=== PATIENT | female | born 1980 | race Hispanic/Latino ===

== ENCOUNTER 2017-10-10 11:29 | Emergency (ER) | payer BC ==
[2017-10-10 12:16] LABS: Absolute Lymphocytes (CBC) 1.9 K/uL (0.7-4.9); Absolute Monocytes 0.5 K/uL (0.1-1.3); Absolute Neutrophil 6.5 K/uL (1.8-8.0); Basophils % 0.5 % (0-1.3); Eosinophils % 1.1 % (0-4.4); Hematocrit 39.3 % (36.0-45.0); Lymphocytes % 21.1 % (15.3-44.8); MCH 27.9 pg (27.0-35.0); MCV 86.2 fL (80-100); Monocytes % 5.6 % (3.3-12.3); RBC Red Blood Cell Count 4.57 M/uL (3.86-4.86)
[2017-10-10 12:17] LABS: Urine Blood 2+ (NEG); Urine Glucose NEGATIVE (NEG); Urine Protein NEGATIVE (NEG); Urine Specific Gravity 1.025 (1.005-1.030); Urine pH 7.5 (5.0-7.0)
[2017-10-10 12:24] LABS: Bicarbonate 26 mEq/L (21-31); Glucose Level 93 mg/dL (65-120); Potassium 3.6 mEq/L (3.6-5.0); Sodium Level 140 mEq/L (135-145)
[2017-10-10 12:25] LABS: BUN Blood Urea Nitrogen 10 mg/dL (6-20)
[2017-10-10 12:38] LABS: HCG, Quantitative 172.9 mIU/mL (<5)
--- NOTE | 2017-10-10 13:34 | RAD REPORT ---
EXAM DESCRIPTION: US - Transvaginal OB - 10/10/2017 1:13 pm CLINICAL HISTORY: Vaginal bleeding. COMPARISON: None. FINDINGS: The uterus is normal in size, shape and echotexture. The uterus measures 8.8 x 4.7 x 4.0 c m. The endometrial stripe measures 12 mm. No gestational sac is suspected in the endometrium. The right ovary measures 3.5 x 2.6 x 1.5 cm. Normal Doppler blood flow seen to the right ovary. The l eft ovary is not well identified. No left-sided adnexal mass. No significant pelvic ascites. IMPRESSION: Mildly thickened and heterogenous endometrial stripe without retained products seen.
--- NOTE | 2017-10-10 14:01 | ER ---
Nurse's Notes [facility] Name: Berna Funes Age: 37 yrs Sex: Female : 1980 Arrival Date: 10/10/2017 Time: 11:32 Bed 14 Private MD: Diagnosis: Complete or unspecified spontaneous without complication Presentation: 10/10 11:36 Presenting complaint: Patient states: spotting for one week, bleeding worse today, had la1 tubal reversal June 17. Pt of Dr Ruiz who has been doing serial HCG. Transition of care: patient was not received from another setting of care. Onset of symptoms was October 10, 2017. Care prior to arrival: None. 11:36 Method Of Arrival: Ambulatory la1 11:36 Acuity: PAULA 3 la1 Triage Assessment: 11:51 General: Appears in no apparent distress. uncomfortable, Behavior is calm, cooperative, hj appropriate for age. Pain: Complains of pain in left lower quadrant and right lower quadrant. EENT: No signs and/or symptoms were reported regarding the EENT system. Neuro: Level of Consciousness is awake, alert, obeys commands, Oriented to person, place, time, situation, Appropriate for age. Cardiovascular: Capillary refill < 3 seconds Patient's skin is warm and dry. Respiratory: Airway is patent Respiratory effort is even, unlabored, Respiratory pattern is regular, symmetrical. GI: No signs and/or symptoms were reported involving the gastrointestinal system. : Reports vaginal bleeding that is. Derm: No signs and/or symptoms reported regarding the dermatologic system. Musculoskeletal: No signs and/or symptoms reported regarding the musculoskeletal system. 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 - Social history:: Smoking status: Patient/guardian denies using tobacco. Screenin:50 Abuse screen: Denies threats or abuse. Denies injuries from another. Nutritional hj screening: No deficits noted. Tuberculosis screening: No symptoms or risk factors identified. Fall Risk None identified. Assessment: 11:54 Reassessment: see triage for assessment;. hj 11:55 Obstetrical Assessment: General assessment: awake and alert, skin warm and dry, Rupture hj of membranes noted. Contractions Patient reports abdominal cramping. 13:19 Reassessment: Patient and/or family updated on plan of care and expected duration. Pain hj level reassessed. Patient is alert, oriented x 3, equal unlabored respirations, skin warm/dry/pink. back from US;. Vital Signs: 11:37 BP 128 / 80; Pulse 74; Resp 16; Temp 97.3; Pulse Ox 100% on R/A; Weight 64.86 kg; la1 Height 5 ft. 3 in. (160.02 cm); 13:19 BP 127 / 79; Pulse 76; Resp 18; Pulse Ox 100% on R/A; hj 14:07 BP 126 / 80; Pulse 75; Resp 18; Pulse Ox 100% on R/A; hj 11:37 Body Mass Index 25.33 (64.86 kg, 160.02 cm) la1 Vitals: 14:06 Heart Tones not ordered;. hj ED Course: 11:32 Patient arrived in ED. mr 11:33 Alis Harding, ARNAV is PHCP. kb 11:33 Bryan Alexander MD is Attending Physician. kb 11:37 Triage completed. la1 11:38 Arm band placed on left wrist. la1 11:50 Rony Garcia, NATALY is Primary Nurse. hj 11:53 Patient has correct armband on for positive identification. Placed in gown. Bed in low hj position. Call light in reach. Side rails up X 1. 13:13 Ultrasound completed. Patient tolerated well. cy 13:13 US Transvaginal Ob In Process Unspecified. EDMS 14:06 No provider procedures requiring assistance completed. intact, bleeding controlled, No hj redness/swelling at site. Pressure dressing applied. 14:35 Assist provider with pelvic exam: Set up pelvic tray. Patient tolerated well. mh5 Administered Medications: No medications were administered Point of Care Testing: Urine : 11:45 hCG Reading: Positive; Control Reading: Positive; hj Outcome: 14:00 Discharge ordered by . kb 14:06 Discharged to home ambulatory, with family. hj 14:06 Condition: stable 14:06 Discharge instructions given to patient, family, Instructed on discharge instructions, follow up and referral plans. Demonstrated understanding of instructions, follow-up care. 14:10 Patient left the ED. hj Signatures: Dispatcher [employer] EDAlis Concepcion, ARNAV STAFFORD-Kamilah Dallas Lee, RN RN la1 Rony Garcia RN RN hj Martinez, Maria [facility] Savita Gold
--- NOTE | 2017-10-10 14:01 | EDPHYS ---
Physician Documentation [facility] Name: Berna Funes Age: 37 yrs Sex: Female : 1980 Arrival Date: 10/10/2017 Time: 11:32 Bed 14 Private MD: ED Physician Bryan Alexander HPI: 10/10 11:47 This 37 yrs old Female presents to ER via Ambulatory with complaints of kb Vaginal Bleeding, + Preg <12wks, Abdominal Cramping. 11:47 The patient presents to the emergency department with abdominal pain, of the right kb lower quadrant and left lower quadrant, that started this morning, described as crampy, vaginal bleeding, that is moderate. The estimated gestational age is 6 weeks. course: care: private OB physician, Dr. Jurado. Previous pregnancies: in previous pregnancies patient has had. Associated signs and symptoms: Pertinent positives: abdominal pain, vaginal bleeding, Pertinent negatives: chest pain, diarrhea, dysuria, fever, frequency, nausea, ruptured membranes, seizure, shortness of breath, vaginal discharge, vomiting. The patient has not experienced similar symptoms in the past. The patient has been recently seen by a physician:. Pt reports she has been spotting and Dr Jurado has been following that, but today the bleeding has become worse and she is have cramping all the way around abd. . 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 - Social history:: Smoking status: Patient/guardian denies using tobacco. ROS: 11:47 Constitutional: Negative for fever, chills, and weight loss, Cardiovascular: Negative kb for chest pain, palpitations, and edema, Respiratory: Negative for shortness of breath, cough, wheezing, and pleuritic chest pain, MS/Extremity: Negative for injury and deformity, Skin: Negative for injury, rash, and discoloration, Neuro: Negative for headache, weakness, numbness, tingling, and seizure. 11:47 : Positive for vaginal bleeding. 11:51 Abdomen/GI: Positive for abdominal cramps. kb Exam: 11:52 Constitutional: This is a well developed, well nourished patient who is awake, alert, kb and in no acute distress. Head/Face: Normocephalic, atraumatic. ENT: Nares patent. No nasal discharge, no septal abnormalities noted. Tympanic membranes are normal and external auditory canals are clear. Oropharynx with no redness, swelling, or masses, exudates, or evidence of obstruction, uvula midline. Mucous membranes moist. Neck: Trachea midline, no thyromegaly or masses palpated, and no cervical lymphadenopathy. Supple, full range of motion without nuchal rigidity, or vertebral point tenderness. No Meningismus. Chest/axilla: Normal chest wall appearance and motion. Nontender with no deformity. No lesions are appreciated. Cardiovascular: Regular rate and rhythm with a normal S1 and S2. No gallops, murmurs, or rubs. Normal PMI, no JVD. No pulse deficits. Respiratory: Lungs have equal breath sounds bilaterally, clear to auscultation and percussion. No rales, rhonchi or wheezes noted. No increased work of breathing, no retractions or nasal flaring. Abdomen/GI: Soft, non-tender, with normal bowel sounds. No distension or tympany. No guarding or rebound. No evidence of tenderness throughout. Back: No spinal tenderness. No costovertebral tenderness. Full range of motion. Skin: Warm, dry with normal turgor. Normal color with no rashes, no lesions, and no evidence of cellulitis. MS/ Extremity: Pulses equal, no cyanosis. Neurovascular intact. Full, normal range of motion. Neuro: Awake and alert, GCS 15, oriented to person, place, time, and situation. Cranial nerves II-XII grossly intact. Motor strength 5/5 in all extremities. Sensory grossly intact. Cerebellar exam normal. Normal gait. 13:56 : Pelvic Exam: External exam: is normal, Speculum exam: scant bleeding, blood clots kb in vaginal vault, no cervicitis, os that is open, no tissue in cervix is seen, no tissue in vagina is seen, bimanual exam reveals normal findings, discharge, bloody, the hearing aide technician was present for the exam. Vital Signs: 11:37 BP 128 / 80; Pulse 74; Resp 16; Temp 97.3; Pulse Ox 100% on R/A; Weight 64.86 kg; la1 Height 5 ft. 3 in. (160.02 cm); 13:19 BP 127 / 79; Pulse 76; Resp 18; Pulse Ox 100% on R/A; hj 14:07 BP 126 / 80; Pulse 75; Resp 18; Pulse Ox 100% on R/A; hj 11:37 Body Mass Index 25.33 (64.86 kg, 160.02 cm) la1 MDM: 11:39 Patient medically screened. kb 11:52 Data reviewed: vital signs, nurses notes. Data interpreted: Pulse oximetry: on room air kb is 100 %. Interpretation: normal. 13:58 Counseling: I had a detailed discussion with the patient and/or guardian regarding: the kb historical points, exam findings, and any diagnostic results supporting the discharge/admit diagnosis, lab results, radiology results, the need for outpatient follow up, an OB/Gyne specialist, to return to the emergency department if symptoms worsen or persist or if there are any questions or concerns that arise at home. ED course: Minimal bleeding noted during pelvic exam. US showed no retained products. Educated to follow up with Dr Jurado on Thursday. Pt will return for increased bleeding, pain or other concerns. . 10/10 11:39 Order name: Quantitative Hcg; Complete Time: 12:38 kb 10/10 11:39 Order name: Abo/rh Typing; Complete Time: 12:38 kb 10/10 11:39 Order name: Basic Metabolic Panel; Complete Time: 12:38 kb 10/10 11:39 Order name: CBC with Diff; Complete Time: 12:31 kb 10/10 12:11 Order name: Urine Dipstick--Ancillary (enter results); Complete Time: 12:26 ms 10/10 12:11 Order name: Urine --Ancillary (enter results); Complete Time: 12:26 ms 10/10 11:39 Order name: IV Saline Lock; Complete Time: 12:05 kb 10/10 11:39 Order name: Labs collected and sent; Complete Time: 12:05 kb 10/10 11:39 Order name: NPO; Complete Time: 11:54 kb 10/10 11:39 Order name: Urine Dipstick-Ancillary (obtain specimen); Complete Time: 11:54 kb 10/10 12:40 Order name: US Transvaginal Ob; Complete Time: 13:35 kb 10/10 13:23 Order name: Pelvic Exam Setup; Complete Time: 13:35 kb Administered Medications: No medications were administered Point of Care Testing: Urine : 11:45 hCG Reading: Positive; Control Reading: Positive; sally Disposition: 10/10/17 14:00 Discharged to Home. Impression: Complete or unspecified spontaneous without complication. - Condition is Stable. - Discharge Instructions: Miscarriage, Pmgp-[id number]. - Medication Reconciliation Form, Thank You Letter, Antibiotic Education, Prescription Opioid Use form. - Follow up: Emergency Department; When: As needed; Reason: Worsening of condition. Follow up: Private Physician; When: 2 - 3 days; Reason: Recheck today's complaints, Continuance of care, Re-evaluation by your physician. Addendum: 10/12/2017 07:25 Co-signature as Attending Physician, Bryan Alexander MD. g s Signatures: Dispatcher [employer] EDMS Alis Harding, ARNAV STAFFORD-Victorino Carlin RN RN laRony Sainz RN RN hj Starr, Gregory, MD MD gs Corrections: (The following items were deleted from the chart) 10/10 11:52 11:47 Constitutional: Negative for fever, chills, and weight loss, Cardiovascular: kb Negative for chest pain, palpitations, and edema, Respiratory: Negative for shortness of breath, cough, wheezing, and pleuritic chest pain, Abdomen/GI: Negative for abdominal pain, nausea, vomiting, diarrhea, and constipation, MS/Extremity: Negative for injury and deformity, Skin: Negative for injury, rash, and discoloration, Neuro: Negative for headache, weakness, numbness, tingling, and seizure, kb
== END 2017-10-10 14:10 | disposition home or self-care (01) ==
LOC: ER 11:29
DX: O03.9 Complete or unspecified spontaneous abortion without complication (principal)
CPT/HCPCS: 36415; 76817; 80048; 81003; 81025; 84702; 85025; 86900; 86901; 99284

== ENCOUNTER 2018-07-05 07:42 | Emergency (ER) | payer SELFPAY ==
[2018-07-05 08:32] LABS: Absolute Lymphocytes (CBC) 1.4 K/uL (0.7-4.9); Absolute Monocytes 0.3 K/uL (0.1-1.3); Absolute Neutrophil 3.6 K/uL (1.8-8.0); Basophils % 0.5 % (0-1.3); Eosinophils % 2.3 % (0-4.4); Hematocrit 38.1 % (36.0-45.0); Lymphocytes % 25.9 % (15.3-44.8); MPV 7.9 fL (7.6-11.3); Monocytes % 5.4 % (3.3-12.3); RBC Red Blood Cell Count 4.44 M/uL (3.86-4.86)
[2018-07-05 08:42] LABS: Urine Blood 3+ (NEG); Urine Glucose NEGATIVE (NEG); Urine Protein 1+ (NEG)
[2018-07-05 08:47] LABS: BUN Blood Urea Nitrogen 9 mg/dL (7-18); Bicarbonate 24 mmol/L (21-32); Glucose Level 93 mg/dL (74-106); HCG, Quantitative 324 mIU/mL (1-3); Potassium 3.9 mmol/L (3.5-5.1); Sodium Level 139 mmol/L (136-145)
--- NOTE | 2018-07-05 13:03 | EDPHYS ---
Physician Documentation [facility] Name: Berna Funes Age: 37 yrs Sex: Female : 1980 Arrival Date: 07/05/2018 Time: 07:42 Bed 13 Private MD: Oni London E ED Physician Davin Perez HPI: 07/05 10:09 This 37 yrs old Female presents to ER via Ambulatory with complaints of jr8 Vaginal Bleeding, + Preg <12wks. 10:10 The patient presents to the emergency department with vaginal bleeding, that is light, jr8 with clots. The estimated gestational age is 5 weeks. course: care: private OB physician, Dr. Jurado, Ultrasound: the patient had an ultrasound, on July 01, 2018, which showed No intrauterine gestational sac noted . Previous pregnancies: in previous pregnancies patient has had vaginal delivery. The patient has experienced similar episodes in the past, a few times. The patient has been recently seen by a physician:. Patient had tubal reversal a few years ago. Since then has had two spontaneous abortions. Found out that she was recently . Now having bleeding and clots. Saw Dr. Jurado who has ultrasound her and has been following her HCG's. Came to ED for pain with bleeding and cramping. Was concern for ectopic per Dr. Jurado . 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 - Social history:: Smoking status: Patient/guardian denies using tobacco. - Ebola Screening: : No symptoms or risks identified at this time. ROS: 10:10 Eyes: Negative for injury, pain, redness, and discharge, ENT: Negative for injury, jr8 pain, and discharge, Neck: Negative for injury, pain, and swelling, Cardiovascular: Negative for chest pain, palpitations, and edema, Respiratory: Negative for shortness of breath, cough, wheezing, and pleuritic chest pain, Back: Negative for injury and pain, MS/Extremity: Negative for injury and deformity, Skin: Negative for injury, rash, and discoloration, Neuro: Negative for headache, weakness, numbness, tingling, and seizure. 10:10 Abdomen/GI: Positive for abdominal cramps, Negative for nausea, vomiting, and diarrhea. 10:10 : Positive for vaginal bleeding. Exam: 10:10 Eyes: Pupils equal round and reactive to light, extra-ocular motions intact. Lids and jr8 lashes normal. Conjunctiva and sclera are non-icteric and not injected. Cornea within normal limits. Periorbital areas with no swelling, redness, or edema. ENT: Nares patent. No nasal discharge, no septal abnormalities noted. Tympanic membranes are normal and external auditory canals are clear. Oropharynx with no redness, swelling, or masses, exudates, or evidence of obstruction, uvula midline. Mucous membranes moist. Neck: Trachea midline, no thyromegaly or masses palpated, and no cervical lymphadenopathy. Supple, full range of motion without nuchal rigidity, or vertebral point tenderness. No Meningismus. Cardiovascular: Regular rate and rhythm with a normal S1 and S2. No gallops, murmurs, or rubs. Normal PMI, no JVD. No pulse deficits. Respiratory: Lungs have equal breath sounds bilaterally, clear to auscultation and percussion. No rales, rhonchi or wheezes noted. No increased work of breathing, no retractions or nasal flaring. Abdomen/GI: Soft, non-tender, with normal bowel sounds. No distension or tympany. No guarding or rebound. No evidence of tenderness throughout. Back: No spinal tenderness. No costovertebral tenderness. Full range of motion. Skin: Warm, dry with normal turgor. Normal color with no rashes, no lesions, and no evidence of cellulitis. MS/ Extremity: Pulses equal, no cyanosis. Neurovascular intact. Full, normal range of motion. Neuro: Awake and alert, GCS 15, oriented to person, place, time, and situation. Cranial nerves II-XII grossly intact. Motor strength 5/5 in all extremities. Sensory grossly intact. Cerebellar exam normal. Normal gait. Vital Signs: 07:50 BP 115 / 81; Pulse 80; Resp 18 S; Temp 97.8(TE); Pulse Ox 98% on R/A; Weight 63.5 kg aa5 (R); Height 5 ft. 6 in. (167.64 cm) (R); Pain 4/10; 08:50 BP 104 / 72; Pulse 77; Resp 17; Pulse Ox 99% ; Pain 0/10; rb1 10:44 BP 105 / 78; Pulse 72; Resp 16; Pulse Ox 98% on R/A; rb1 11:44 BP 107 / 71; Pulse 84; Resp 17; Pulse Ox 100% on R/A; rb1 12:44 BP 109 / 68; Pulse 65; Resp 16; Pulse Ox 100% on R/A; Pain 0/10; rb1 13:35 BP 113 / 66; Pulse 63; Resp 18; Pulse Ox 99% on R/A; rb1 07:50 Body Mass Index 22.60 (63.50 kg, 167.64 cm) aa5 MDM: 08:09 Patient medically screened. jr8 09:29 ED course: I have called and left message for Dr. Jurado to call ED back about his jr8 personal patient here. Awaiting call back . 10:17 ED course: Got a hold of Dr. Jurado. Advised him of patient symptoms and condition today jr along with updated HCG. Recommends starting methotrexate at this point if nothing shows in Uterus. He advised patient about seeing surgeon who did her tubal reversal as well in [place] which patient has not had the chance of seeing yet . 13:00 Data reviewed: vital signs, nurses notes, lab test result(s), radiologic studies, jr8 ultrasound. Data interpreted: Pulse oximetry: on room air is 100 %. Interpretation: normal. Counseling: I had a detailed discussion with the patient and/or guardian regarding: the historical points, exam findings, and any diagnostic results supporting the discharge/admit diagnosis, lab results, radiology results, the need for outpatient follow up, an OB/Gyne specialist, to return to the emergency department if symptoms worsen or persist or if there are any questions or concerns that arise at home. ED course: small cystic structure noted in uterus. Will hold methotrexate until she sees Dr. Jurado on Thursday. Will have redraw of HCG that day and will see Dr. Jurado . 07/05 08:09 Order name: Quantitative Hcg; Complete Time: 09:12 jr8 24 08:09 Order name: Abo/rh Typing; Complete Time: 09:43 07/05 08:09 Order name: Basic Metabolic Panel; Complete Time: 09:12 07/05 08:09 Order name: CBC with Diff; Complete Time: 08:37 07/05 08:38 Order name: Urine Dipstick--Ancillary (enter results); Complete Time: 09:12 07/05 08:38 Order name: Urine --Ancillary (enter results); Complete Time: 09:12 07/05 08:09 Order name: Urine Test (obtain specimen); Complete Time: 08:07/05 08:09 Order name: IV Saline Lock; Complete Time: :07/05 08:09 Order name: Labs collected and sent; Complete Time: :07/05 08:09 Order name: NPO; Complete Time: :07/05 08:09 Order name: Urine Dipstick-Ancillary (obtain specimen); Complete Time: 08:07/05 10:08 Order name: US Transvaginal Ob; Complete Time: 13:24 Administered Medications: No medications were administered Point of Care Testing: Urine : 13:00 hCG Reading: Positive; rb1 Disposition: 07/05/18 13:02 Discharged to Home. Impression: Threatened . - Condition is Stable. - Discharge Instructions: Threatened Miscarriage, Vaginal Bleeding During , First Trimester, Pelvic Rest. - Medication Reconciliation Form, Thank You Letter, Antibiotic Education, Prescription Opioid Use form. - Follow up: Mukesh Jurado MD; When: 07/07/2018. - Problem is new. - Symptoms have improved. Addendum: 07/13/2018 11:24 Co-signature as Attending Physician, Davin Perez MD I agree with the assessment and c cardona plan of care. Signatures: Dispatcher [employer] Davin Beck MD MD cha Calderon, Audri, RN RN aa5 Matias Marsh PA PA jr8 Arelis Quintana, RN RN rb1 Corrections: (The following items were deleted from the chart) 07/05 13:02 10:17 ED course: Got a hold of Dr. Jurado. Advised him of patient symptoms and condition jr8 today along with updated HCG. Recommends starting methotrexate at this point. He advised patient about seeing surgeon who did her tubal reversal as well in [place] which patient has not had the chance of seeing yet . jr8 13:39 13:02 07/05/2018 13:02 Discharged to Home. Impression: Threatened . Condition rb1 is Stable. Forms are Medication Reconciliation Form, Thank You Letter, Antibiotic Education, Prescription Opioid Use. Follow up: Mukesh Jurado; When: 07/07/2018. Problem is new. Symptoms have improved. jr8
--- NOTE | 2018-07-05 13:03 | ER ---
Nurse's Notes [facility] Name: Berna Funes Age: 37 yrs Sex: Female : 1980 Arrival Date: 07/05/2018 Time: 07:42 Bed 13 Private MD: Oni London E Diagnosis: Threatened Presentation: 07/05 07:46 Presenting complaint: Patient states: vaginal bleeding that began with small aa5 clots. Pt reports being 5 weeks . Pt reports being seen by LEARNING ANALYST on and US reported no evidence of IUP. Pt c/o groin pain. Transition of care: patient was not received from another setting of care. Onset of symptoms was June 2018. Risk Assessment: Do you want to hurt yourself or someone else? Patient reports no desire to harm self or others. Initial Sepsis Screen: Does the patient meet any 2 criteria? No. Patient's initial sepsis screen is negative. Does the patient have a suspected source of infection? No. Patient's initial sepsis screen is negative. Care prior to arrival: None. 07:46 Method Of Arrival: Ambulatory aa5 07:46 Acuity: PAULA 3 aa5 LEARNING ANALYST: 07:50 6, Full Term 3, Premature 0, 2, Living 3, LMP 05/29/2018 aa5 10:10 6, Full Term 3, Premature 0, 2, Living 3 jr8 Historical: - Allergies: 07:49 No Known Allergies; aa5 - Home Meds: 07:49 None [Active]; aa5 - PMHx: 07:49 None; aa5 - PSHx: 07:49 Tubal ligation reversal ; aa5 - Immunization history:: Adult Immunizations up to date. - Social history:: Smoking status: Patient/guardian denies using tobacco. - Ebola Screening: : No symptoms or risks identified at this time. Screenin:03 Abuse screen: Denies threats or abuse. Nutritional screening: No deficits noted. aa5 Tuberculosis screening: No symptoms or risk factors identified. Fall Risk None identified. Assessment: 07:55 General: Appears uncomfortable, Behavior is calm, cooperative. Pain: Complains of pain aa5 in groin Pain radiates to anus Pain currently is 4 out of 10 on a pain scale. Quality of pain is described as pressure, Pain began today Is continuous. Neuro: Level of Consciousness is awake, alert, obeys commands, Oriented to person, place, time, situation. Cardiovascular: Heart tones S1 S2 present Rhythm is regular. Respiratory: Airway is patent Respiratory effort is even, unlabored, Respiratory pattern is regular, symmetrical. GI: Abdomen is round non-distended, Bowel sounds present X 4 quads. Abd is soft and non tender X 4 quads. Patient currently denies nausea, vomiting. : Reports vaginal bleeding that is bright red, with clots, moderate flow, since . EENT: No signs and/or symptoms were reported regarding the EENT system. Derm: Skin is pink, warm \T\ dry. Musculoskeletal: Range of motion: intact in all extremities. 08:50 General: Appears in no apparent distress. comfortable, Behavior is calm, cooperative. rb1 Pain: Denies pain. Neuro: Level of Consciousness is awake, alert, obeys commands, Oriented to person, place, time, situation. Cardiovascular: Capillary refill < 3 seconds is brisk in bilateral fingers. Respiratory: Airway is patent Respiratory effort is even, unlabored, Respiratory pattern is regular, symmetrical. GI: No signs and/or symptoms were reported involving the gastrointestinal system. : No signs and/or symptoms were reported regarding the genitourinary system. Derm: Skin is dry, Skin is normal, Skin temperature is warm. 09:50 Reassessment: Patient appears in no apparent distress at this time. No changes from rb1 previously documented assessment. 10:47 Reassessment: Patient appears in no apparent distress at this time. Patient and/or rb1 family updated on plan of care and expected duration. Pain level reassessed. Patient is alert, oriented x 3, equal unlabored respirations, skin warm/dry/pink. Pt. ambulated to the bathroom without difficulty. 11:45 Reassessment: Patient appears in no apparent distress at this time. No changes from rb1 previously documented assessment. Patient denies pain at this time. 12:45 Reassessment: Patient appears in no apparent distress at this time. Patient and/or rb1 family updated on plan of care and expected duration. Pain level reassessed. Patient is alert, oriented x 3, equal unlabored respirations, skin warm/dry/pink. Patient denies pain at this time. Patient states feeling better. 13:35 Reassessment: Patient appears in no apparent distress at this time. No changes from rb1 previously documented assessment. Vital Signs: 07:50 BP 115 / 81; Pulse 80; Resp 18 S; Temp 97.8(TE); Pulse Ox 98% on R/A; Weight 63.5 kg aa5 (R); Height 5 ft. 6 in. (167.64 cm) (R); Pain 4/10; 08:50 BP 104 / 72; Pulse 77; Resp 17; Pulse Ox 99% ; Pain 0/10; rb1 10:44 BP 105 / 78; Pulse 72; Resp 16; Pulse Ox 98% on R/A; rb1 11:44 BP 107 / 71; Pulse 84; Resp 17; Pulse Ox 100% on R/A; rb1 12:44 BP 109 / 68; Pulse 65; Resp 16; Pulse Ox 100% on R/A; Pain 0/10; rb1 13:35 BP 113 / 66; Pulse 63; Resp 18; Pulse Ox 99% on R/A; rb1 07:50 Body Mass Index 22.60 (63.50 kg, 167.64 cm) aa5 ED Course: 07:42 Patient arrived in ED. sb2 07:43 Oni London MD is Private Physician. sb2 07:46 Arm band placed on. aa5 07:49 Triage completed. aa5 07:51 Lydia Briones RN is Primary Nurse. aa5 07:55 Patient has correct armband on for positive identification. Placed in gown. Bed in low aa5 position. Call light in reach. Side rails up X2. 08:09 [facility] Marsh [facility] jr8 08:09 Davin Perez MD is Attending Physician. jr8 08:20 Initial lab(s) drawn, by co, sent to lab. Inserted saline lock: 22 gauge in right aa5 forearm, using aseptic technique. Blood collected. 09:00 Report given to NATALY Infante. aa5 12:15 Ultrasound completed. Patient tolerated well. sg3 12:43 US Transvaginal Ob In Process Unspecified. EDMS 13:02 Mukesh Jurado MD is Referral Physician. jr8 13:39 No provider procedures requiring assistance completed. IV discontinued, intact, rb1 bleeding controlled, No redness/swelling at site. Pressure dressing applied. Administered Medications: No medications were administered Point of Care Testing: Urine : 13:00 hCG Reading: Positive; rb1 Outcome: 13:02 Discharge ordered by . jr8 13:39 Patient left the ED. rb1 13:39 Discharged to home ambulatory. rb1 13:39 Condition: stable 13:39 Discharge instructions given to patient, Instructed on discharge instructions, follow up and referral plans. Demonstrated understanding of instructions, follow-up care, Prescriptions given X none Signatures: Dispatcher [employer] EDCO Lydia Briones RN RN aa5 Bisi Larry RN RN Matias Marsh PA PA jr8 Arelis Quintana RN RN rb1 Yvonne Benjamin sg3 Iwona Wills sb2 Corrections: (The following items were deleted from the chart) 08:30 07:55 GI: Abdomen is round non-distended, Bowel sounds present X 4 quads. Abd is soft aa5 and non tender X 4 quads. aa5 10:47 09:19 Reassessment: rb1
--- NOTE | 2018-07-05 13:17 | RAD REPORT ---
EXAM DESCRIPTION: US - Transvaginal OB - 07/05/2018 12:44 pm CLINICAL HISTORY: with abdominal pain and vaginal bleeding COMPARISON: July 01, 2018 FINDINGS: The uterus 9 x 4 x 4 centimeters. A gestational sac is present within the endometrium nemesio suring 3 millimeters. Yolk sac is not seen. pole not demonstrated Ovaries normal in size and echotexture. Nabothian cysts within cervix No significant free fluid is seen. IMPRESSION: 3 millimeter sac within the endometrium may represent normal IUP in which a pole i s not demonstrated secondary to the early gestation. Pseudo gestational sac associated with an ectopi c can also have this appearance. Incomplete is another consideration. Serial beta HCG recommended. Followup endovaginal sonogram in 1 week should be obtained
== END 2018-07-05 13:39 | disposition home or self-care (01) ==
LOC: ER 07:42
DX: O20.0 Threatened abortion (principal); Z3A.01 Less than 8 weeks gestation of pregnancy
CPT/HCPCS: 36415; 76817; 80048; 81003; 81025; 84702; 85025; 86900; 86901; 99284

== ENCOUNTER 2019-07-18 05:56 | Inpatient (IN) | payer BC, OTHER ==
[2019-07-18] MEDS ORDERED: MORPHINE 4 MG/ML SYR ONE (06:27)
[2019-07-18] MEDS ORDERED: ONDANSETRON 4 MG/2 ML VIAL ONE (06:27)
[2019-07-18 06:45] LABS: Absolute Lymphocytes (CBC) 1.4 K/uL (0.7-4.9); Basophils % 0.6 % (0-1.3); Hematocrit 38.6 % (36.0-45.0); Lymphocytes % 25.9 % (15.3-44.8); MPV 7.8 fL (7.6-11.3); RBC Red Blood Cell Count 4.51 M/uL (3.86-4.86)
[2019-07-18 07:04] LABS: ALT/SGPT 23 U/L (12-78); AST/SGOT 10 U/L (15-37); Albumin 3.5 g/dL (3.4-5.0); Alkaline Phosphatase 67 U/L (45-117); BUN Blood Urea Nitrogen 9 mg/dL (7-18); Bicarbonate 23 mmol/L (21-32); Bilirubin Direct < 0.1 mg/dL (0-0.2); Bilirubin Total 0.2 mg/dL (0.2-1.0); Glucose Level 109 mg/dL (74-106); Lipase 93 U/L (73-393); Potassium 3.8 mmol/L (3.5-5.1); Protein, Total 7.7 g/dL (6.4-8.2); Sodium Level 140 mmol/L (136-145)
[2019-07-18 07:22] LABS: Urine Blood 2+ (NEG); Urine Glucose NEGATIVE (NEG); Urine Protein TRACE (NEG); Urine Specific Gravity >1.030 (1.005-1.030); Urine pH 5.5 (5.0-7.0)
[2019-07-18 07:26] LABS: Urine Bacteria >50 /HPF (<20); Urine Culture Reflex Order NOT NEEDED; Urine Mucus HEAVY /HPF (NONE SEEN)
--- NOTE | 2019-07-18 08:23 | RAD REPORT ---
EXAM DESCRIPTION: US - Transvaginal OB - 07/18/2019 7:50 am CLINICAL HISTORY: left lower pelvic pain COMPARISON: Transvaginal OB dated 07/05/2018 FINDINGS: The uterus is normal in size, shape and echotexture. No gestational sac is seen in the end ometrium. Both ovaries are normal in size, shape and echotexture with normal blood flow. Irregular right adnexal mass is present measuring 4.4 x 6.6 cm. Mild free fluid in the cul de sac. IMPRESSION: IUP findings are not present. A complex right adnexal mass is present with mild free flu id in the pelvis. In the setting of an elevated HCG level, this would be highly suspicious for ectopi c .
[2019-07-18] MEDS ORDERED: ACETAMINOPHEN 500 MG TAB PO PRN (11:52)
[2019-07-18] MEDS ORDERED: ONDANSETRON 4 MG/2 ML VIAL IV PRN (11:52)
--- NOTE | 2019-07-18 13:32 | ER ---
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 Transition of care: patient was not received from another setting of care. Onset of symptoms was July 18, 2019. Risk Assessment: Do you want to hurt yourself or someone else? Patient reports no desire to harm self or others. Initial Sepsis Screen: Does the patient meet any 2 criteria? No. Patient's initial sepsis screen is negative. Does the patient have a suspected source of infection? No. Patient's initial sepsis screen is negative. Care prior to arrival: None. 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 - Social history:: Smoking status: unknown. - Ebola Screening: : No symptoms or risks identified at this time. Screenin:20 Abuse screen: Denies threats or abuse. Denies injuries from another. Nutritional aa1 screening: No deficits noted. Tuberculosis screening: No symptoms or risk factors identified. Fall Risk None identified. Assessment: 06:20 General: Appears in no apparent distress. uncomfortable, Behavior is calm, cooperative, aa1 appropriate for age. Pain: Complains of pain in left lower quadrant Pain currently is 10 out of 10 on a pain scale. Quality of pain is described as sharp, Pain began 4 hours ago. Is continuous. Neuro: Level of Consciousness is awake, alert, obeys commands, Oriented to person, place, time, situation, Moves all extremities. Full function Gait is steady. Respiratory: Airway is patent Respiratory effort is even, unlabored, Respiratory pattern is regular, symmetrical. GI: Abdomen is non-distended, Bowel sounds present X 4 quads. Abd is soft X 4 quads Abdomen is tender to palpation in suprapubic area and left lower quadrant. : Reports cramping, Denies vaginal bleeding. EENT: No signs and/or symptoms were reported regarding the EENT system. Derm: Skin is intact, is healthy with good turgor, Skin is pink, warm \T\ dry. Musculoskeletal: Circulation, motion, and sensation intact. Capillary refill < 3 seconds. 07:02 Reassessment: Patient appears in no apparent distress at this time. Patient and/or hb family updated on plan of care and expected duration. Pain level reassessed. Patient is alert, oriented x 3, equal unlabored respirations, skin warm/dry/pink. 08:00 Reassessment: Patient appears in no apparent distress at this time. Patient and/or hb family updated on plan of care and expected duration. Pain level reassessed. Patient is alert, oriented x 3, equal unlabored respirations, skin warm/dry/pink. 09:00 Reassessment: Patient appears in no apparent distress at this time. Patient and/or hb family updated on plan of care and expected duration. Pain level reassessed. Patient is alert, oriented x 3, equal unlabored respirations, skin warm/dry/pink. 10:00 Reassessment: Patient appears in no apparent distress at this time. Patient and/or hb family updated on plan of care and expected duration. Pain level reassessed. Patient is alert, oriented x 3, equal unlabored respirations, skin warm/dry/pink. 11:01 Reassessment: Patient appears in no apparent distress at this time. Patient and/or hb family updated on plan of care and expected duration. Pain level reassessed. Patient is alert, oriented x 3, equal unlabored respirations, skin warm/dry/pink. 12:00 Reassessment: Patient appears in no apparent distress at this time. Patient and/or hb family updated on plan of care and expected duration. Pain level reassessed. Patient is alert, oriented x 3, equal unlabored respirations, skin warm/dry/pink. 13:00 Reassessment: Patient appears in no apparent distress at this time. Patient and/or hb family updated on plan of care and expected duration. Pain level reassessed. Patient is alert, oriented x 3, equal unlabored respirations, skin warm/dry/pink. Vital Signs: 06:12 BP 124 / 78; Pulse 95; Resp 16 S; Temp 98.1(O); Pulse Ox 98% on R/A; Weight 68.04 kg bb (R); Height 5 ft. 6 in. (167.64 cm) (R); Pain 10/10; 07:16 BP 126 / 74; Pulse 89; Resp 16; Pulse Ox 100% on R/A; Pain 2/10; hb 08:15 BP 115 / 83; Pulse 88; Resp 15; Pulse Ox 99% on R/A; hb 09:30 BP 114 / 78; Pulse 85; Resp 14; Pulse Ox 100% on R/A; hb 10:30 BP 108 / 63; Pulse 76; Resp 16; Temp 98.5; Pulse Ox 97% ; Pain 5/10; hb 11:40 BP 126 / 79; Pulse 83; Resp 16; Pulse Ox 99% ; sv 12:31 BP 105 / 66; Pulse 83; Resp 15; Pulse Ox 98% on R/A; hb 06:12 Body Mass Index 24.21 (68.04 kg, 167.64 cm) ED Course: 05:58 Patient arrived in ED. cl3 06:09 Anthony Berman PA is PHCP. [facility] 06:09 Davin Perez MD is Attending Physician. jmm 06:11 Triage completed. 06:12 Arm band placed on Patient placed in an exam room, on a stretcher, on pulse oximetry. Family accompanied patient. 06:20 Patient has correct armband on for positive identification. Placed in gown. Bed in low aa1 position. Call light in reach. Pulse ox on. NIBP on. Warm blanket given. 06:30 Initial lab(s) drawn, by me, sent to lab. Urine collected: clean catch specimen, aa1 cloudy. Inserted saline lock: 20 gauge in right forearm, using aseptic technique. Blood collected. 07:16 Yovana Levy, RN is Primary Nurse. hb 08:07 Transvaginal OB In Process Unspecified. EDMS 08:15 T\T\S collected, blood band applied to patient. by venipuncture 21G to left ac by me. dh3 HCGQ drawn by me and sent to lab. 11:48 Marci Aden MD is Hospitalizing Provider. [facility] 13:20 No provider procedures requiring assistance completed. Patient admitted, IV remains in hb place. Administered Medications: 06:31 Drug: Zofran 4 mg Route: IVP; Site: right antecubital; aa1 07:15 Follow up: Response: No adverse reaction hb 06:33 Drug: morphine 4 mg Route: IVP; Site: right antecubital; aa1 07:15 Follow up: Response: No adverse reaction hb Outcome: 11:48 Decision to Hospitalize by Provider. [facility] 13:20 Admitted to L \T\ D, accompanied by tech, family with patient, via wheelchair, room 279, with chart. 13:20 Condition: stable 13:20 Instructed on the need for admit, Demonstrated understanding of instructions. 13:37 Patient left the ED. Signatures: Dispatcher [employer] EDMS Indira Palmer, RN RN Gisela Mane RN RN aa1 Anthony Berman, MARCO A PA Jesi Soriano RN Yovana Mason RN RN Marixa Hicks 3 Scout Mcwilliams cl3
--- NOTE | 2019-07-18 13:33 | EDPHYS ---
Physician Documentation [facility] Name: Berna Funes Age: 38 yrs Sex: Female : 1980 Arrival Date: 07/18/2019 Time: 05:58 Bed 6 Private MD: ED Physician Davin Perez HPI: 07/18 06:16 This 38 yrs old Female presents to ER via Ambulatory with complaints of [facility] Abdominal Pain. 06:16 The patient presents with abdominal pain. Onset: The symptoms/episode began/occurred jmm acutely, at 02:00. The symptoms do not radiate. Associated signs and symptoms: Pertinent negatives: nausea and vomiting, diarrhea, fever. The symptoms are described as achy, sharp. Modifying factors: The symptoms are alleviated by nothing, the symptoms are aggravated by nothing. This is a 38 year old female with no chronic medical conditions that presents to the ED with complaints of lower abdominal pain which began this morning around 0200. Pain intensified. Patient states she has had ovarian cysts in the past. Denies abdominal surgical history. . 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 - Social history:: Smoking status: unknown. - Ebola Screening: : No symptoms or risks identified at this time. ROS: 06:16 Constitutional: Negative for fever, chills, and weight loss, Cardiovascular: Negative jmm for chest pain, palpitations, and edema, Respiratory: Negative for shortness of breath, cough, wheezing, and pleuritic chest pain. 06:16 Abdomen/GI: Positive for abdominal pain. 06:16 All other systems are negative. Exam: 06:16 Constitutional: This is a well developed, well nourished patient who is awake, alert, jmm and in no acute distress. Head/Face: atraumatic. Eyes: EOMI, no conjunctival erythema appreciated ENT: Moist Mucus Membranes Neck: Trachea midline, Supple Chest/axilla: Normal chest wall appearance and motion. Cardiovascular: Regular rate and rhythm. No edema appreciated Respiratory: Normal respirations, no respiratory distress appreciated 06:16 Back: Normal ROM Skin: General appearance color normal MS/ Extremity: Moves all extremities, no obvious deformities appreciated, no edema noted to the lower extremities Neuro: Awake and alert, normal gait Psych: Behavior is normal, Mood is normal, Patient is cooperative and pleasant 06:16 Abdomen/GI: Inspection: abdomen appears normal, Bowel sounds: normal, Palpation: soft, mild abdominal tenderness, in the left lower quadrant. 09:32 : Pelvic Exam: External exam: is normal, Speculum exam: scant bleeding. [facility] Vital Signs: 06:12 BP 124 / 78; Pulse 95; Resp 16 S; Temp 98.1(O); Pulse Ox 98% on R/A; Weight 68.04 kg bb (R); Height 5 ft. 6 in. (167.64 cm) (R); Pain 10/10; 07:16 BP 126 / 74; Pulse 89; Resp 16; Pulse Ox 100% on R/A; Pain 2/10; hb 08:15 BP 115 / 83; Pulse 88; Resp 15; Pulse Ox 99% on R/A; hb 09:30 BP 114 / 78; Pulse 85; Resp 14; Pulse Ox 100% on R/A; hb 10:30 BP 108 / 63; Pulse 76; Resp 16; Temp 98.5; Pulse Ox 97% ; Pain 5/10; hb 11:40 BP 126 / 79; Pulse 83; Resp 16; Pulse Ox 99% ; sv 12:31 BP 105 / 66; Pulse 83; Resp 15; Pulse Ox 98% on R/A; hb 06:12 Body Mass Index 24.21 (68.04 kg, 167.64 cm) MDM: 06:09 Patient medically screened. [facility] 11:43 Data reviewed: vital signs, nurses notes. Counseling: I had a detailed discussion with [facility] the patient and/or guardian regarding: the historical points, exam findings, and any diagnostic results supporting the discharge/admit diagnosis, lab results, radiology results, the need for further work-up and treatment in the hospital. ED course: I discussed the patient with Dr. Aden whom accepted admission. . 07/18 06:14 Order name: Basic Metabolic Panel; Complete Time: 07:29 [facility] 07/18 06:14 Order name: CBC with Diff; Complete Time: 06:51 [facility] 07/18 06:14 Order name: Creatinine for Radiology; Complete Time: 07:02 [facility] 07/18 06:14 Order name: Hepatic Function; Complete Time: 07:29 jm 07/18 06:14 Order name: Lipase; Complete Time: 07:29 [facility] 07/18 06:43 Order name: Urine Dipstick--Ancillary (enter results) ak 07/18 06:43 Order name: Urine --Ancillary (enter results) ak 07/18 07:22 Order name: Urine Microscopic Only; Complete Time: 07:29 EDMT 07/18 07:22 Order name: Urine --Ancillary EDMT 07/18 07:23 Order name: Urine Dipstick-Ancillary EDMT 07/18 07:56 Order name: Type And Screen; Complete Time: 09:16 [facility] 07/18 06:14 Order name: IV Saline Lock; Complete Time: 06:44 [facility] 07/18 06:14 Order name: Labs collected and sent; Complete Time: 06:44 [facility] 07/18 06:14 Order name: Urine Dipstick-Ancillary (obtain specimen); Complete Time: 06:44 [facility] 07/18 06:14 Order name: Urine Test (obtain specimen); Complete Time: 06:43 [facility] 07/18 08:03 Order name: HCG-Quantitative; Complete Time: 08:43 hb 07/18 08:07 Order name: Transvaginal OB; Complete Time: 08:40 EDMT 07/18 08:43 Order name: Pelvic Exam Setup; Complete Time: 09:10 [facility] 07/18 12:19 Order name: NPO EDMT 07/18 12:19 Order name: CBC with Automated Diff EDMS Administered Medications: 06:31 Drug: Zofran 4 mg Route: IVP; Site: right antecubital; aa1 07:15 Follow up: Response: No adverse reaction hb 06:33 Drug: morphine 4 mg Route: IVP; Site: right antecubital; aa1 07:15 Follow up: Response: No adverse reaction hb Disposition: 07/19 07:03 Co-signature as Attending Physician, Davin Perez MD I agree with the assessment and desmond plan of care. Disposition: 07/18/19 11:48 Hospitalization ordered by Marci Aden for Inpatient Admission. Preliminary diagnosis is Ectopic . - Bed [facility]. - Status is Inpatient Admission. hb - Condition is Stable. - Problem is new. - Symptoms are unchanged. UTI on Admission? Yes Signatures: Dispatcher [employer] [facility] Sunni Chowdhury, RN RN Gisela Mohan RN RN aa1 Davin Perez MD MD cha Mickail, Joel, PA PA [facility] Jesi Will RN RN Yovana Levy RN RN hb Corrections: (The following items were deleted from the chart) 07/18 06:59 06:17 Abdomen Pelvis W Con+CT.RAD.BRZ ordered. [facility] EDMT 07:38 07:20 Urine Dipstick-Ancillary ordered. [facility] 07:39 07:22 Urine --Ancillary ordered. [facility] EDMT 07:40 07:08 UA MICROSCOPIC+U.LAB.BRZ ordered. [facility] EDMT 08:04 07:06 1st Trimest Single 1st Fetus+US.RAD.BRZ ordered. [facility] 12:58 11:48 Hospitalization Ordered by Marci Aden MD for Inpatient Admission. dw Preliminary diagnosis is Ectopic . Bed [facility] for [facility]. Status is Inpatient Admission. Condition is Stable. Problem is new. Symptoms are unchanged. UTI on Admission? Yes. [facility] 13:37 12:58 07/18/2019 11:48 Hospitalization Ordered by Marci Aden MD for Inpatient hb Admission. Preliminary diagnosis is Ectopic . Bed requested for [facility]. Status is Inpatient Admission. Condition is Stable. Problem is new. Symptoms are unchanged. UTI on Admission? Yes. dw
[2019-07-18 14:07] VITALS: BMI 24.2
[2019-07-18] MEDS: D5 0.45 NS 1,000 ML IV SCH ×2 (15:13→23:30)
[2019-07-18] MEDS ORDERED: D5 0.45 NS 1,000 ML IV ONE (23:27)
--- NOTE | 2019-07-19 01:10 | HP ---
Date of Admission: 07/18/2019 Admitting Diagnoses: Pelvic pain, right complex adnexal mass, and first trimester . Reason For Admission: Rule out ectopic . Chief Complaint: Patient is a 38-year-old, 7, para 3-0-3-3, last menstrual period 06/14/2019, complains of sudden onset pelvic pain, mid pelvic lower pain, very similar to cramping at 2 a.m. She was awoken from the sleep due to the pain. No bleeding noted. Progressively cramping got severe. Patient came over to the ER. No nausea, vomiting. No dysuria, frequency, or urgency. No vaginal bleeding. No recent history of intercourse. Review of Systems: No shortness of breath. No back pain. Denied chest pain. All 10-point review of systems negative. Gynecologic History: 3 full-term vaginal deliveries, tubal ligation followed by tubal reversal in 2017. Since then, 3 conceptions prior to the current one. All miscarried very early, less than 6 weeks. The longest was in 6 weeks of , spontaneous, complete abortions. Patient never had to have a D and C. She is Dr. Jurado's patient and her LMP was 06/14. Her periods are very accurate in 28-day cycles, lasting 3-7 days. Patient reported that her last was in November or December and since then her periods have been regular monthly and she has been tracking her periods. So, when she missed her period within this week, she had tested home urine test and was positive, so she was aware that she was and so when she had this pain she was worried about a miscarriage and so came into the ER. Pain progressively worsened. Over the course of the ER, her hCG level was 600 and a transvaginal ultrasound showed some free fluid and a complex right adnexal mass. Past Medical History: None. Past Surgical History: Significant for tubal ligation and for tubal reversal. Allergies: NO KNOWN ALLERGIES TO MEDICATIONS. Medications: No current medications other than vitamin. Social History: No tobacco, alcohol, or drug use. Family History: No significant family history. Patient lives with and children at home. Gynecologic History: 3 miscarriages, all since 2017. No infertility workup thus far. Never had problems with conception. Physical Examination: General: Patient appeared to be not pale, anicteric, no acute distress, lying on her stretcher in the ER accompanied by her by the bedside. Head and Neck: Unremarkable. Lungs: Clear. Chest: Auscultated. Heart: Regular rate and rhythm. Abdomen: Soft, nondistended, tender in the suprapubic area and right lower quadrant, very low. No rebound was noted and there was no voluntary or involuntary guarding. No masses or hernias were palpable. Extremities: No edema or calf tenderness. Pelvic: Labia unremarkable. No blood in the vagina. Vaginal canal unremarkable. Cervix very thick, posterior, closed; however, patient had positive cervical motion tenderness in significant amount and tenderness in the right adnexa as well as on the uterus. Left adnexa unremarkable. Diagnostic Data: Her hemoglobin was 12 g. Her hCG level 600. Her transvaginal ultrasound images were reviewed. There was a complex right adnexal mass and the endometrial stripe appeared to be trilaminar and no gestational sac was seen within the entire canal and there was excellent visualization and alignment of the endometrial canal with the cervical canal, so no area that was not optimally visualized. Left ovary unremarkable. There was some free fluid. Assessment And Plan: 1. Pelvic pain: Differential diagnosis for pelvic pain, hemorrhagic corpus luteal cyst, right tubal ectopic or threatened . Her white cell count was completely normal. Urine dip negative. On review of the ultrasound images, the right adnexal mass appeared to be complex, very difficult to distinguish ovary from para ovarian mass/ tubal. Appeared to be adjacent to the ovary, and complex in nature. High risk for tubal due to tubal reversal. 2. Threatened : no VB but cramps present central, hcg quant to follow regularly q2d atleast serially x2 in this coming week as an out patient. Once hcg >1500, we can order a TVUS to confirm an IUP. Recurrent SAB, three times in the past 2.5y since tubal reversal. May need [facility] referral. No vaginal bleeding present. Ongoing healthy also is part of her differential. 3. r/o anemia: serial H/H, still 12gm, observe. Hemodynamically stable. Plan was made when I saw the patient in the morning around 11 o'clock to admit the patient for serial exams and serial H and H and keep patient n.p.o. Re- evaluation was done about 12 hours later recently at 10 o'clock. Patient appears to be not in any significant distress, ambulated in the hallway; however , on pelvic examination, there was significant cervical motion tenderness and right adnexal tenderness. So, my assessment was that she does have peritoneal signs, which are concerning for hemoperitoneum either from ruptured corpus luteal cyst or from an ectopic that is leaking. So, we discussed the options of observation with serial exams overnight as her situation has now deteriorated symptomatically or from a hemodynamics standpoint. Her vital signs were all stable. No tachycardia. BP was normal. The alternative is that if her peritoneal signs as noted on the cervical motion tenderness were still present, then this would be a tricky situation to reassess a serum hCG in 48 hours for a titer to see if it has increased 66%. So, it would be very difficult to discharge the patient without evaluation and ruling out ectopic definitively. The alternative is to go home after tomorrow if the pain is stable and observe and return if the pain worsens and follow the hCG quant every 48 hours for 1-2 times until a pattern is established and she can get a repeat ultrasound. Patient appeared to be fairly comfortable today, but on exam had no change from the exam this morning. Consented her for diagnostic laparoscopy, possible salpingectomy if tubal ectopic seen on the right side if there is a corpus luteal cyst that was bleeding, then we would do a cystectomy, which would then threaten the decision for which we can give vaginal progesterone and observe. No manipulation of the uterus and the cavity. If there is an ongoing , to leave it alone. Bleeding, infection, injury to the bowel, bladder, and ureters; miscarriage were all reviewed with the patient and she consented. The plan is to keep the consent on the chart. Her repeat hemoglobin was 12 g. Her vital signs were stable and abdominal exam had not changed. So, we will repeat an exam in the morning. If there is significant cervical motion tenderness given the way that the adnexal mass looked on the ultrasound, I would do a diagnostic laparoscopy and then discharge the patient home. She needs a salpingectomy due to suspicion of an ectopic or stricture of the tube, that will be done and removal of corpus luteal cyst also discussed and increased risk of miscarriage discussed. OMAR/EVA Voice ID: [id number] ALEKSANDAR
[2019-07-19 05:09] LABS: Absolute Lymphocytes (CBC) 1.5 K/uL (0.7-4.9); Basophils % 0.5 % (0-1.3); Hematocrit 34.8 % (36.0-45.0); Lymphocytes % 29.9 % (15.3-44.8); MPV 7.8 fL (7.6-11.3); RBC Red Blood Cell Count 4.01 M/uL (3.86-4.86)
[2019-07-19] MEDS ORDERED: propofoL 200 MG/20 ML VIAL IV ONE (07:10)
[2019-07-19] MEDS ORDERED: LIDOCAINE 2% MPF 5 ML VIAL ONE (07:11)
[2019-07-19] MEDS ORDERED: MIDAZOLAM HCL 2 MG/2 ML INJ ONE (07:11)
[2019-07-19] MEDS ORDERED: ROCURONIUM 50 MG/5 ML VIAL IV ONE (07:12)
[2019-07-19] MEDS ORDERED: NEOSTIGMINE 1 MG/ML -5 ML ONE (07:12)
[2019-07-19] MEDS ORDERED: ONDANSETRON 4 MG/2 ML VIAL ONE (07:12)
[2019-07-19] MEDS ORDERED: FENTANYL CITR 100 MCG/2 ML ONE (07:12)
[2019-07-19] MEDS ORDERED: GLYCOPYRROLATE 0.2 MG/ML SYR ONE (07:13)
[2019-07-19] MEDS ORDERED: dexAMETHasone 10 MG/ML VIAL ONE (07:13)
[2019-07-19] MEDS ORDERED: SUCCINYLCHOLINE 20 MG/ML (10 ML) IV ONE (07:18)
[2019-07-19] MEDS ORDERED: Ringers Lactate 1,000 ML IV ONE (07:19)
[2019-07-19] MEDS: BUPIVACAINE 0.25% PF 30 ML VIAL ONE ×2 (07:31→08:11)
[2019-07-19] MEDS ORDERED: EPHEDRINE SULF 50 MG/ML VIAL ONE (08:09)
[2019-07-19] MEDS ORDERED: PROMETHAZINE INJ 25 MG/ML AMP IV PRN (09:04)
[2019-07-19] MEDS ORDERED: MEPERIDINE HCL 25 MG/0.5 ML IM PRN (09:04)
[2019-07-19] MEDS ORDERED: HYDROCODONE/APAP 5/325 MG TAB PO PRN (09:04)
--- NOTE | 2019-07-19 09:09 | P.BOP ---
Preoperative diagnosis: pelvic pain., 1st trimester preg, rt complex adnexal mass Postoperative diagnosis: pelvic pain., 1st trimester preg, rt tubal ectopic, umb hernia Primary procedure: laparoscopy right salpingectomy Secondary procedure: umbilical hernia repair Professional Bass Fisherman: EVELYN CHI Estimated blood loss: minimal Specimen: right tube and clot with possible POC Findings: dilated right tube bleeding, normal left tube, right ovary w CL cyst intact Anesthesia: General Complications: None Transferred to: Recovery Room Condition: Good
[2019-07-19] MEDS ORDERED: PROMETHAZINE INJ 25 MG/ML AMP ONE (09:24)
[2019-07-19 09:31] VITALS: O2SAT 97
[2019-07-19 10:07] VITALS: BP 113/65; TEMP 97.2
--- NOTE | 2019-07-19 19:52 | OP ---
Date of Procedure: 07/19/2019 Surgeon: Marci Aden MD Guard Rail Installer: Heather Mckinney. Preoperative Diagnoses: Pelvic pain, first-trimester , complex right adnexal mass. Postoperative Diagnoses: Pelvic pain, first-trimester , right tubal ectopic , umbi lical hernia. Procedures Performed: Diagnostic laparoscopy and right salpingectomy with removal of ectopic pregnan cy and clot and umbilical hernia repair. Anesthesia: General. Specimens: Right tube and right adnexal clot with possible products of conception. Estimated Blood Loss: Minimal. Complications: None. Drains: None. Patient's Condition: Stable. Indications: This morning, patient was reassessed and her pain continued to be the same. Her exam i s significant for cervical motion tenderness, representing blood in her peritoneal cavity. Suspicion was that she had either a bleeding ruptured right tubal or a right ovarian mass, likely a ruptured cyst. After discussing with her the benefits and risks of surgery and options of observatio n versus proceeding with the procedure, she was consented for a laparoscopy, possible right salpingec amandeep if the tubal ectopic was present, and serial monitoring with HCG levels. Her HCG this morning w as 850, up from 600 yesterday . Description Of Procedure: She was taken back to OR, placed in the supine fashion on the operating ta ble. No antibiotics given. SCDs started. Placed in supine position. After general anesthesia was given, she was placed in a dorsal lithotomy position using Mt stirrups. Pelvic exam performed. U terus anteflexed, small. Right adnexal fullness palpable. Abdomen, vulva, vagina, and perineum were prepped and draped in a sterile fashion. Vail was placed to drain the bladder, and a sponge on a stick placed in the posterior fornix of the vagina. A 1 cm infraumbilical incision along the old tubal ligation scar was made. Fascia was dissected down . There was a scar down to it and once the fascial edges were picked up with Kochers, a small incisi on made and I could recognize a fascial defect going inferiorly and the margins were rounded. Once t his was explored, fascial margins were visualized by dissecting the subcutaneous tissues from the fas cial edge. Then, I could see the preperitoneal fat protruding through here and this was reduced. Th e fascial edges were picked up with Kochers and 0 Vicryl suture placed on each side for tagging it, a nd I would do the hernia repair later. So, the peritoneum was picked up, cut with Kittrell and entered s harply. S retractor was placed. Insufflation done. Patient was placed in Trendelenburg position. There was clearly blood in the cul-de-sac anteriorly and in the right lower quadrant as well on the t op of the omentum. Patient was then placed in Trendelenburg. Five suprapubic and left lower quadran t ports placed under direct vision. All incisions were injected with Marcaine at the fascia and skin before the trocars were placed in all 3 sites. On inspection of the uterus, it was completely unremarkable. The right tube was enlarged and dilated . There was a small laceration on the distal one-third of the tube which had bright red bleeding fro m here and there was a large clot sitting adjacent to the ovary and the tube together. The clot was carefully and removed and placed in the right lower quadrant, and the right ovary was caref ully examined to see if it was a ruptured ovarian cyst. The cyst was completely intact, about 2 cm i n size, probably a corpus luteal cyst. The ovary appeared to be completely unremarkable and the cyst intact. No bleeding from here was seen. The bleeding was coming from the tube and so once the dila tion of the tube as well as this bleeding and the clot were all visualized, the suspected diagnosis o f right tubal ectopic was confirmed and then the tube was removed using the 5 mm curved-tip LigaSure. The tube and the clot with possible products of conception in them were all carefully placed in the bag and meticulously all the clots were collected and placed in the bag. The bag was closed. Thoro ugh irrigation and suction were performed and there was no active bleeding. Patient was taken out of Trendelenburg and placed in reverse Trendelenburg, and observation was done to see if there was any fresh blood. There was no more pooling of blood. All the pedicles were hemostatic. All the trocars were removed under direct vision. Gas was desufflated. Fascia at the sites was again injected with Marcaine as well as the skin sites. Then, attention was directed to removing the Ryanne after desuf flating the peritoneal cavity. The fascial edges were picked up with 2 Arianna clamps and margins wer e cleared up inferiorly. 0 PDS sutures x2 were placed in [id number] fashion, 1 inferiorly and 1 on the top, making sure it went nicely on the edges of the fascia. Once these two were tied togethe r, there was no more defect and it was well supported. The subcutaneous tissue was closed with a 3-0 chromic and then 4-0 Vicryl interrupted for skin closure on all 3 sites. The Vail and the sponge o n the stick were removed. Instrument, needle, and sponge counts were correct at the end of the case. EBL was minimal. Whatever bleeding was present in the peritoneal cavity was all that we lost. Hanna xiao was recovered from anesthesia and taken to the PACU in a stable condition. She will follow up w celeste me in 1 week. We will repeat an HCG quant in 2 days. So, we will check it on and subse quently if the quant has fallen, plan is to just monitor her. If the quant doubles or increases to 6 6% in 2 days, then plan would be to continue to monitor for a possible intrauterine . All t hese were discussed with the patient preoperatively and she is ready for all the monitoring. OMAR/EVA Voice ID: [id number] Report ID: [id number]
== END 2019-07-19 12:45 | disposition home or self-care (01) | DRG 819 ==
LOC: ER 05:56 → ERHOLD 11:53 → 2ND-WC 13:20
PROVIDERS: ADMIT Obstetrics & Gynecology; ATTEND Obstetrics & Gynecology
PROC: 0UT54ZZ Resection of Right Fallopian Tube, Percutaneous Endoscopic Approach (ICD-10-PCS; 2019-07-19)
PROC: 0WQF4ZZ Repair Abdominal Wall, Percutaneous Endoscopic Approach (ICD-10-PCS; 2019-07-19)
PROC: 10T24ZZ Resection of Products of Conception, Ectopic, Percutaneous Endoscopic Approach (ICD-10-PCS; principal; 2019-07-19 07:30)
DX: O00.101 Right tubal pregnancy without intrauterine pregnancy (principal); K42.9 Umbilical hernia without obstruction or gangrene
CPT/HCPCS: 36415; 76817; 80048; 80076; 81003; 81015; 81025; 83690; 84702; 85025; 86850; 86900; 86901; 88305; 96374; 96375; 99285; J0330; J1100; J2250; J2405; J2550; J2704; J2710; J3010; J7120; J7799

== ENCOUNTER 2022-09-17 08:35 | Emergency (ER) | payer OTHER, BC ==
--- OUTSIDE RECORDS SUMMARY | 2022-09-17 08:38 | XMS REPORT | Continuity of Care Document ---
:1980 Author Organization [facility] t Address [address] [place] [address] [place] [id number] Care Team Providers Name Role Phone Tani Marroquin DO Attending Clinician Lab, Adc Fam Pob I Attending Clinician Unavailable Kevin Pal Attending Clinician KEVIN SERNA Attending Clinician Unavailable Doctor Unassigned, [place] Attending Clinician Unavailable Payers Payer Name Policy Type Policy Number Effective Date Expiration Date S ource [facility] - [id number] 2017 00:00:00 OUT OF STATE Problems Condition Condition Condition Status Onset Resolution Last Treating Co mments Source Name Details Category Date Date Treatment Clinician Date No known No known Disease Unive rs active active ity of problems problems [facility] Allergies, Adverse Reactions, Alerts Allergy Allergy Status Severity Reaction(s) Onset Inactive Treating Comm ents Source Name Type Date Date Clinician NO KNOWN Drug Active Univers ALLERGIE Class ity of S [facility] Social History Social Habit Start Date Stop Date Quantity Comments Source Exposure to Not sure [facility] SARS-CoV-2 (event) Medica l Branch Alcohol intake 2016-05-13 2016-05-13 [facility] 00:00:00 00:00:00 [facility] [birth year] [facility] [place] [facility] 00:00:00 [facility] Smoking Status Start Date Stop Date Source Never smoker [facility] Medications Ordered Filled Start Stop Current Ordering Indication Dosage Frequency Signature Comments Components Source Medication Medication Date Date Medication? Clinician (SIG) Name Name meclizine 2019-0 Yes [id number] 25mg Take 1 U nivers 25 mg 5-11 tablet by ity of tablet 00:00: mouth 3 [place] 00 (three) Medical times Branch daily as needed for Dizziness. meclizine 2018- Yes [id number] 25mg Take 1 U nivers 25 mg 5-11 tablet by ity of tablet 00:00: mouth 3 00 (three) Medical times Branch daily as needed for Dizziness. meclizine 2018-0 Yes [id number] 25mg Take 1 U nivers 25 mg 5-11 tablet by ity of tablet 00:00: mouth 3 00 (three) Medical times Branch daily as needed for Dizziness. promethazin 2017-0 Yes 5mL Take 5 mL U nivers e-codeine 2-16 by mouth 4 ity of 6.25-10 00:00: (four) [place] mg/5 mL 00 times Medical syrup daily as Branch needed for Cough. promethazin 2017-0 Yes 5mL Take 5 mL U nivers e-codeine 2-16 by mouth 4 ity of 6.25-10 00:00: (four) [place] mg/5 mL 00 times Medical syrup daily as Branch needed for Cough. promethazin 0 Yes 5mL Take 5 mL U nivers e-codeine 2-16 by mouth 4 ity of 6.25-10 00:00: (four) [place] mg/5 mL 00 times Medical syrup daily as Branch needed for Cough. naproxen 2015-07 Yes 500mg Take 1 Univer s (NAPROSYN) 1-01 tablet by ity of 500 mg 00:00: mouth 2 [place] tablet 00 (two) Medical times Branch daily with meals. naproxen 2015-07 Yes 500mg Take 1 Univer s (NAPROSYN) 1-01 tablet by ity of 500 mg 00:00: mouth 2 [place] tablet 00 (two) Medical times Branch daily with meals. naproxen 2015-07 Yes 500mg Take 1 Univer s (NAPROSYN) 1-01 tablet by ity of 500 mg 00:00: mouth 2 [place] tablet 00 (two) Medical times Branch daily with meals. Vital Signs Vital Name Observation Time Observation Value Comments Source Systolic blood 2021-01-04 19:00:00 129 mm[Hg] Univer sity of pressure [facility] Diastolic blood 2021-01-04 19:00:00 85 mm[Hg] Unive rsity of pressure [facility] Heart rate 2021-01-04 19:00:00 88 /min [facility] Respiratory rate 2021-01-04 19:00:00 18 /min [facility] Oxygen saturation in 2021-01-04 19:00:00 100 /min [facility] Arterial blood by [facility] Pulse oximetry Branch Body temperature 2021-01-04 17:35:00 37.17 Mariely [facility] Body height 2021-01-04 17:35:00 167.6 cm [facility] Body weight 2021-01-04 17:35:00 63.504 kg [facility] BMI 2021-01-04 17:35:00 22.60 kg/m2 [facility] Procedures Procedure Date / Time Performed Performing Clinician Sour e CT ABDOMEN PELVIS WO 2021-01-04 18:20:04 Tani Marroquin [facility] POCT TEST 2021-01-04 18:01:00 [facility] 2021-01-04 17:58:00 Singer Taniantionette Yepez [facility] LIPASE 2021-01-04 17:47:00 [facility] COMP. METABOLIC PANEL 2021-01-04 17:47:00 Tani Marroquin [facility] ([id number]) [facility] CBC WITH DIFF 2021-01-04 17:47:00 [facility] NOTICE OF PRIVACY 2021-01-04 17:31:47 Doctor Unassigned, No [facility] PRACTICES Name [facility] [place] CONSENT/REFUSAL FOR 2021-01-04 17:31:34 [facility], [facility] AND Name [facility] [place] TREATMENT Encounters Start End Encounter Admission Attending Care Care Encounter Source Date/Time Date/Time Type Type Clinicians Facility Department ID 2021-05-13 Emergency [facility] [id number] [facility] 2021-01-04 2021-01-04 Emergency ELIO Marroquin [id number] Univers 12:33:00 14:59:00 Tani Waters [id number] i ty sourav [place] [id number] [place] [id number] [facility] 084 Branch 2020-05-03 2020-05-03 Laboratory Lab, Adc Fam Pob I [facility] [id number]. [id number] Univers 09:50:26 10:10:26 Only Kevin Serna 350.1.13.10 ity of [place] 4.2.7.2.686 Fritz as Professio [phone] Nd dical on license of [facility] [address] [place] [address] 2020-05-03 2020-05-03 Outpatient R DAPHNE [facility] [id number] Univers 10:00:00 10:00:00 KEVIN ity of [facility] 2020-05-03 2020-05-03 Letter Doctor ARISTEO [id number] Univers 00:00:00 00:00:00 (Out) Unassigned, CANDELARIO [id number] ity of [place] [facility] 4.2.7.2.686 [place] as [phone] [address] Results Test Description Test Time Test Comments Results Result [facility] e Comments CT ABDOMEN 2020-12-12 No acute University of PELVIS WO 5 abnormality. No [place] Med ical CONTRAST 18:57:[address] [facility] h ABDOMEN PELVIS WO CONTRAST 01/04/2021 1:03 PM HISTORY: Flank pain, kidney stone suspected Stone suspected COMPARISON: CT abdomen pelvis 05/13/2015. TECHNIQUE AND FINDINGS: Contiguous axial imaging of abdomen and pelvis wasperformed without contrast. Coronal and sagittal reconstructions wereobtained. FINDINGS:Statements: Lack of intravenous contrast compromises evaluation of solidorgans and vasculature. LOWER THORAX: The lungs bases are clear. ? HEPATOBILIARY: Normal size liver. ?Pointed calcified granuloma in segment4. A 1 cm hypodensity in left hepatic lobe, unchanged and probablyrepresent cyst.No biliary ductal dilatation. No hyperdense stone. SPLEEN: No splenomegaly. PANCREAS: Normal in appearance. No ductal dilation. ADRENAL GLANDS: No adrenal nodules. KIDNEYS: No hydronephrosis, or stones. GI TRACT: No dilation or wall thickening. Normal appendix. PERITONEUM AND RETROPERITONEUM: No free air or free fluid. LYMPH NODES: No lymphadenopathy. PELVIS/BLADDER: The uterus is anteverted. The ovaries appear normal. Theurinary bladder is partially distended with normal cortical thickness. VESSELS: Normal caliber. BONES AND SOFT TISSUES: No suspicious lytic or sclerotic bone lesions. [facility], Radiant Results Inft User - 01/04/2021 1:[address] ABDOMEN PELVIS WO CONTRAST 01/04/2021 1:03 PMHISTORY: Flank pain, kidney stone suspected Stone suspectedCOMPARISON: CT abdomen pelvis 05/13/2015.TECHNIQUE AND FINDINGS: Contiguous axial imaging of abdomen and pelvis wasperformed without contrast. Coronal and sagittal reconstructions wereobtained.FINDINGS :Statements: Lack of intravenous contrast compromises evaluation of solidorgans and vasculature. LOWER THORAX: The lungs bases are clear. HEPATOBILIARY: Normal size liver. Pointed calcified granuloma in segment4. A 1 cm hypodensity in left hepatic lobe, unchanged and probablyrepresent cyst.No biliary ductal dilatation. No hyperdense stone.SPLEEN: No splenomegaly.PANCREAS : Normal in appearance. No ductal dilation.ADRENAL GLANDS: No adrenal nodules.KIDNEYS: No hydronephrosis, or stones.GI TRACT: No dilation or wall thickening. Normal appendix.PERITONEUM AND RETROPERITONEUM: No free air or free fluid.LYMPH NODES: No lymphadenopathy.PELVI S/BLADDER: The uterus is anteverted. The ovaries appear normal. Theurinary bladder is partially distended with normal cortical thickness.VESSELS: Normal caliber.BONES AND SOFT TISSUES: No suspicious lytic or sclerotic bone lesions.IMPRESSIONNo acute abnormality. No nephrolithiasis. Complete Metabolic Panel 2021-01-04 18:23:25 Test Item Value Reference Range Interpretation Comme nts NA (test code = 4966742764) 139 mmol/L 135-145 K (test code = 9723118412) 4.0 mmol/L 3.5-5.0 CL (test code = 6853545647) 106 mmol/L 98-108 CO2 TOTAL (test code = 5859886984) 22 mmol/L 23-31 L AGAP (test code = 4945830900) 2-16 BUN (test code = 4081256587) 15 mg/dL 7-23 GLUCOSE (test code = 6333528990) 89 mg/dL 70-110 CREATININE (test code = 0.51 mg/dL 0.50-1.04 8282618728) TOTAL BILI (test code = 0.3 mg/dL 0.1-1.7 0923914662) CALCIUM (test code = 6059919618) 9.6 mg/dL 8.6-10.6 T PROTEIN (test code = 4680320233) 8.2 g/dL 6.3-8.2 ALBUMIN (test code = 5734593774) 4.6 g/dL 3.5-5.0 ALK PHOS (test code = 8878049728) 83 U/L 34-122 ALTv (test code = 1742-6) 13 U/L 5-35 AST(SGOT) (test code = 1601779706) 27 U/L 13-40 eGFR (test code = 5381444168) mL/min/1.73m2 BOWEN (test code = BOWEN) Association of Glomerular Filtration Rate (GFR) and Staging of Kidney Disease* + +-------- + ------+| GFR (mL/min/1.73 m2) ?| With Kidney Damage ?| ?Without Kidney Damage+ +-- + +| ?>90 ?| ?Stage one ?| ? Normal ?+ +------- + -------+| ?60-89 ?| ?Stage two ?| ? Decreased GFR ? + +-------- + ------+| ?30-59 ?| ?Stage three ?| ? Stage three ? + +-------- + ------+| ?15-29 ?| ?Stage four ? | ? Stage four ?+ +------- + -------+| ?<15 (or dialysis) ? ?| ?Stage five ? | ? Stage five ?+ +------- + -------+ *Each stage assumes the associated GFR level has been in effect for at least three months. ?Stages 1 to 5, with or without kidney disease, indicate chronic kidney disease. Notes: Determination of stages one and two (with eGFR >59mL/min/1.73 m2) requires estimation of kidney damage for at least three months as defined by structural or functional abnormalities of the kidney, manifested by either:Pathological abnormalities or Markers of kidney damage (including abnormalities in the composition of the blood or urine or abnormalities in imaging tests). Lab Interpretation (test code = Abnormal 97469-3) [facility] [id number] 18:23:04 Test Item Value Reference Range Interpretation Comments LIPASE (test code = 9670350027) 85 U/L 0-220 Lab Interpretation (test code = Normal 76347-9) [facility] 18:17:10 Test Item Value Reference Range Interpretation Comments APPEARANCE (test code = Clear Clear 0375826063) COLOR (test code = Yellow Yellow 5656311059) PH (test code = 4.8-8.0 6195418719) SP GRAVITY (test code = 1.003-1.030 1076502639) GLU U QUAL (test code = Normal Normal 1429163737) BLOOD (test code = Negative Negative 7442578482) KETONES (test code = Negative Negative 9145622939) PROTEIN (test code = Negative Negative 2887-8) UROBILIN (test code = Normal Normal 0814651417) BILIRUBIN (test code = Negative Negative 4698977848) NITRITE (test code = Negative Negative 2238538885) LEUK ALIA (test code = Negative Negative 3372548858) RBC/HPF (test code = <1 See_Comment [Autom ated message] 2057092386) The system [employer]Pad generated this result transmitted ref erence range: 0 - 3 HP F. The reference range was not used to int erpret this result as normal/abnormal . WBC/HPF (test code = See_Comment [Autom ated message] 4432257564) The system [employer] generated this result transmitted ref erence range: 0 - 5 HP F. The reference range was not used to int erpret this result as normal/abnormal . BACTERIA (test code = Negative Negative 8730210519) MUCOUS (test code = Slight Negative LPF A 3031240015) SQ EPITH (test code = HPF 4854795688) Lab Interpretation (test Abnormal code = 82932-7) [facility] with [id number] 18:10:01 Test Item Value Reference Range Interpretation Comments WBC (test code = See_Comment [Automated message] 6690-2) The system [employer] generated this result transmitted ref erence range: 4.30 - 1 1.10 10*3/?L. The re ference range was not u sed to interpret this result as normal/abnor mal. RBC (test code = See_Comment [Automated message] 789-8) The system [employer] generated this result transmitted ref erence range: 3.93 - 5 .25 10*6/?L. The re ference range was not u sed to interpret this result as normal/abnor mal. HGB (test code = 13.1 g/dL 11.6-15.0 718-7) HCT (test code = 40.3 % 35.7-45.2 4544-3) MCV (test code = 85.9 fL 80.6-95.5 787-2) MCH (test code = 27.9 pg 25.9-32.8 785-6) MCHC (test code = 32.5 g/dL 31.6-35.1 786-4) RDW-SD (test code 43.9 fL 39.0-49.9 = 87625-7) RDW-CV (test code 14.2 % 12.0-15.5 = 788-0) PLT (test code = See_Comment [Automated message] 777-3) The system [employer] generated this result transmitted ref erence range: 166 - 35 8 10*3/?L. The re ference range was not u sed to interpret this result as normal/abnor mal. MPV (test code = 9.9 fL 9.5-12.9 96740-6) NRBC/100 WBC (test See_Comment [Automat ed message] code = 1545672983) The syste m which generated this result transmitted ref erence range: 0.0 - 10 .0 /100 WBCs. The refer ence range was not u sed to interpret this result as normal/abnor mal. NRBC x10^3 (test <0.01 See_Comment [Automated message] code = 6271680065) The syste m which generated this result transmitted ref erence range: 10*3/?L. The reference range was not used to interpr et this result as normal/abnormal . GRAN MAT (NEUT) % 62.6 % (test code = 770-8) IMM GRAN % (test 0.10 % code = 6902127862) LYMPH % (test code 29.1 % = 736-9) MONO % (test code 6.7 % = 5905-5) EOS % (test code = 1.3 % 713-8) BASO % (test code 0.2 % = 706-2) GRAN MAT 5.41 10*3/uL 1.88-7.09 x10^3(ANC) (test code = 0247751287) IMM GRAN x10^3 <0.03 0.00-0.06 (test code = 5140904353) LYMPH x10^3 (test 2.51 10*3/uL 1.32-3.29 code = 731-0) MONO x10^3 (test 0.58 10*3/uL 0.33-0.92 code = 742-7) EOS x10^3 (test 0.11 10*3/uL 0.03-0.39 code = 711-2) BASO x10^3 (test <0.03 0.01-0.07 code = 704-7) [facility] [id number] 18:01:00 Test Item Value Reference Range Interpretation Comments POCT PREG (test code = 1605) negative On board controls acceptable with C present Line (test code = 3574) Lab Interpretation (test code = Normal 23264-2) [facility]"
[2022-09-17 09:12] VITALS: BP 110/93; TEMP 97.9; O2SAT 98
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
== END 2022-09-17 09:07 | disposition home or self-care (01) ==
LOC: ER 08:35
DX: M62.838 Other muscle spasm (principal); M54.2 Cervicalgia; V49.49XA Driver injured in collision with other motor vehicles in traffic accident, initial encounter; E03.9 Hypothyroidism, unspecified
CPT/HCPCS: 99282